=== PATIENT | male | born 1965 | race African-American/Black ===

== ENCOUNTER 2017-07-06 03:18 | Inpatient (IN) | payer OTHER ==
[~2017-07-06] VITALS: Ht 182.9 cm; Wt 131.5 kg
[2017-07-06] VITALS (9 sets, daily range): BP systolic 116–148; BP diastolic 70–97
[~2017-07-06 03:18] MED LIST: ANTI DEPRESSANT; ATORVASTATIN CA20 MG PO; DILANTIN100 MG PO; FLEXERIL PO; IBUPROFEN 400400 M1 PO; IBUPROFEN 800800 MG PO; MEDROLDOSEPACK PO; NORCO 5-325 TA1 EACH PO; PENICILLIN VK250 MG PO; PERCOCET 10-321 EAC1 PO; PERCOCET 5-3251 EACH PO; PREDNISONE 10 M10 M1 PO; PROTONIX40 M2 PO; TESSALON200 MG PO; ULTRAM 50MG TAB50 MG PO; VICODIN 5-5001 EACH; ZPAK PO
[2017-07-06 03:33] LABS: ABSOLUTE NEUTROPHILS 4.4 thou/uL (1.4-8.2); BASOPHILS 0.9 % (0.0-2.0); EOSINOPHILS 1.4 % (0.0-3.0); HEMATOCRIT 46.1 % (42.0-52.0); HEMOGLOBIN 16.3 gm/dL (14.0-18.0); LYMPHOCYTES 34.3 % (24.0-44.0); MCH 30.1 pg (26.0-34.0); MCHC 35.3 g/dL (28.0-37.0); MCV 85.2 fL (80.0-100.0); MONOCYTES 10.2 % (1.0-8.0); PLATELET COUNT 235 thou/uL (150-400); POLYS 53.2 % (36.0-66.0); RBC 5.41 mil/uL (4.50-6.00); RDW 13.9 % (10.5-14.5); WBC 8.3 thou/uL (4.0-11.0)
[2017-07-06 03:41] LABS: CALCIUM 8.9 mg/dL (8.5-10.1); CREATININE 1.3 mg/dL (0.7-1.3); POTASSIUM 4.1 mmol/L (3.5-5.1)
[2017-07-06 03:47] LABS: ALBUMIN 3.7 g/dL (3.4-5.0); TOTAL BILIRUBIN 0.3 mg/dL (<0.1-1.0); TOTAL PROTEIN 7.1 g/dL (6.4-8.2)
[2017-07-07] VITALS (9 sets, daily range): BP systolic 101–134; BP diastolic 56–72
[2017-07-07 06:10] LABS: CREATININE 1.3 mg/dL (0.7-1.3); POTASSIUM 4.3 mmol/L (3.5-5.1)
[2017-07-07] MEDS ORDERED: PREDNISONE 10 M10 MG PO (11:28)
[2017-07-07] MEDS ORDERED: PROTONIX40 M1 PO (11:29)
== END 2017-07-07 16:21 | disposition home or self-care (01) | DRG 916 ==
LOC: ER 03:18 → EROBS 04:23 → 3W 07:29
PROVIDERS: Emergency Medicine; Nurse Practitioner Family
DX: T78.3XXA Angioneurotic edema, initial encounter (principal); I10 Essential (primary) hypertension; E78.00 Pure hypercholesterolemia, unspecified; K21.9 Gastro-esophageal reflux disease without esophagitis; F17.210 Nicotine dependence, cigarettes, uncomplicated; Z83.3 Family history of diabetes mellitus
CPT/HCPCS: 10879

== ENCOUNTER 2017-07-09 04:43 | Emergency (ER) | payer OTHER ==
[~2017-07-09] VITALS: Ht 182.9 cm; Wt 131.5 kg
[~2017-07-09 04:43] MED LIST changes: +PREDNISONE 10 M10 MG PO; +PROTONIX40 M1 PO
[2017-07-09 05:27] LABS: HEMATOCRIT 47.5 % (42.0-52.0); HEMOGLOBIN 16.5 gm/dL (14.0-18.0); MCHC 34.7 g/dL (28.0-37.0); MCV 86.6 fL (80.0-100.0); PLATELET COUNT 249 thou/uL (150-400); RBC 5.49 mil/uL (4.50-6.00); RDW 14.2 % (10.5-14.5)
[2017-07-09 05:32] LABS: CALCIUM 8.7 mg/dL (8.5-10.1); CREATININE 1.3 mg/dL (0.7-1.3)
[2017-07-09 05:34] LABS: POTASSIUM 4.5 mmol/L (3.5-5.1)
[2017-07-09 07:08] LABS: ABSOLUTE NEUTROPHILS 6.2 thou/uL (1.4-8.2)
[2017-07-09] MEDS ORDERED: HYDROCODONE-ACE15 ML PO (07:52)
[2017-07-09] MEDS ORDERED: AUGMENTIN 875-1 EACH PO (07:52)
[2017-07-09] MEDS ORDERED: IBUPROFEN 600600 M1 PO (07:52)
[2017-07-09] MEDS ORDERED: SENNA-DOCUSATE1 EACH PO (07:52)
[2017-07-09 08:39] VITALS: BP 117/77
== END 2017-07-09 08:40 | disposition home or self-care (01) ==
LOC: ER 04:43
PROVIDERS: Emergency Medicine
DX: J36 Peritonsillar abscess (principal)

== ENCOUNTER → 2018-12-30 | Outpatient (CLI) | payer BC ==
[~2018-12-30] MED LIST changes: +AUGMENTIN 875-1 EACH PO; +HYDROCODONE-ACE15 ML PO; +IBUPROFEN 600600 M1 PO; +SENNA-DOCUSATE1 EACH PO
== END ==
LOC: MRI 09:39
DX: M47.26 Other spondylosis with radiculopathy, lumbar region (principal); M48.04 Spinal stenosis, thoracic region; M54.40 Lumbago with sciatica, unspecified side; R56.9 Unspecified convulsions

== ENCOUNTER → 2019-02-10 | Outpatient (CLI) | payer BC | LOC: MRI 08:59 | DX: S06.9X0D Unspecified intracranial injury without loss of consciousness, subsequent encounter (principal); M47.812 Spondylosis without myelopathy or radiculopathy, cervical region; M50.31 Other cervical disc degeneration, high cervical region; T88.9XXA Complication of surgical and medical care, unspecified, initial encounter; G95.0 Syringomyelia and syringobulbia; W19.XXXA Unspecified fall, initial encounter ==

== ENCOUNTER → 2019-04-07 | Outpatient (CLI) | payer BC ==
[~2019-04-07] VITALS: Ht 182.9 cm; Wt 145.2 kg
[~2019-04-07] MED LIST changes: +GRALISE600 MG PO; +NABUMETONE 500500 M1 PO; +REQUIP 0.25 M0.25 MG PO
--- NOTE | ~2019-04-07 | HPC ---
[facility] [place] [address] PAIN MANAGEMENT CONSULTATION Name: KIMBERYL LERNER [id number] Admission: 04/07/19 Attend Phys: Armando Mayfield DO Discharge: Date of : 69 Report #: [id number] THIS REPORT FOR: cc: Nathan Israel MD, Michael D. MD Johnson, James E. DO ~ CC: Armando Israel MD DATE OF SERVICE: 04/07/2019 REFERRING PHYSICIAN: Nathna Israel MD CHIEF COMPLAINT: Axial back pain. HISTORY OF PRESENT ILLNESS: As you know, the patient is a very pleasant 53-year-old male who reports longstanding history of axial back pain. The patient indicates pain began somewhere in 2018. He denies injury or trauma that may have led to his symptom development. He reports that in the past, he has undergone epidural injections under fluoroscopic guidance with [facility] at their [facility] with good efficacy. He was advised at that time, he was suffering from mild arthritic changes of the lumbar region. He apparently had been doing well since that time. He is being evaluated by his neurologist, Dr. Israel here at [facility] in their Neurology Department, where the patient was complaining of chronic back issues. The patient was subsequently referred to our clinic after discussion of potential treatment options that could be available. The patient indicates today his pain is continuous and constant. He describes his pain as aching. He places his current pain score 7/10, daily average at 8/10, worst pain has been is 10/10. The patient states his pain is exacerbated with standing for any length of time or sitting for any length of time. He indicates nothing much has made his pain better other than the epidural injections he had in the past. He has been referred to our service by his neurologist, Dr. Israel for evaluation for suspected axial back pain. PAST MEDICAL HISTORY: 1. Seizures. 2. Restless leg syndrome. 3. Morbid obesity. PAST SURGICAL HISTORY: No reported history of surgery. SOCIAL HISTORY: The patient is a smoker, smoking 1 pack tobacco per day and he [facility] [address] [place] [address] PAIN MANAGEMENT CONSULTATION Name: KIMBERLY LERNER Room #: [facility]#: [id number] Admission: 04/07/19 Attend Phys: Armando Mayfield DO Discharge: Date of : 69 Report #: [id number] has done so for 20 years plus. He denies IV or illicit drug use. Denies any chronic alcohol use. 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 He is receiving disability income due to his seizures. He is on disability benefits. He is not in litigation in regards to pain. He is unaccompanied at today's visit. REVIEW OF SYSTEMS: Positive for fatigue, weakness, headaches, changes in bowel movements with constipation, abdominal pain, peptic ulcer disease, nocturia, incontinence and dribbling to urine, lightheadedness and dizziness, seizures, numbness and tingling sensations, chronic axial back pain. All other review of systems negative per 12-point review of systems other than those listed in history of present illness. Pain impact score 39/70, indicating moderate interference of daily activities secondary to pain. IMAGING: MRI of the thoracic spine is negative for any pathology. All findings are normal. MRI lumbar spine obtained 12/30/2018 shows mild facet arthropathy at the L1-L2, L2-L3, L4-L5 and L5-S1 levels. There is no significant central canal or neural foraminal stenosis at any level. There was noted ligamentum flavum hypertrophy at the L2-L3, L3-L4 and L4-L5 levels. PHYSICAL EXAMINATION: VITAL SIGNS: Blood pressure 137/94, pulse 90, respiratory rate 16 and unlabored. The patient is 97% on room air, height 6 feet tall, weight 320 pounds, BMI calculated 43.4. GENERAL: Well-developed, well-nourished, well-hydrated, class 3, morbidly obese 53-year-old male, appears stated age, pain is rated today at 7/10. HEENT: Normocephalic, atraumatic. Pupils equal, round, reactive to light. Extraocular muscles are intact. Sclerae nonicteric without injection. NEUROLOGIC: Cranial nerves 2-12 grossly intact. Speech is fluent. The patient deemed a good historian. LUNGS: Clear. No wheeze, rhonchi or rales. CARDIOVASCULAR: Regular. No appreciable gallop or rub. ABDOMEN: Soft, obese, normoactive bowel sounds. EXTREMITIES: Show no clubbing, no cyanosis, and no edema. MUSCULOSKELETAL: Lower extremity strength appears equal and symmetrical 5/5, intact to light touch from L1 through S2 dermatomes. Seated straight leg raising negative. Supine straight leg raising negative. Dick's test is negative. Modified Gaenslen's positive for some axial low back pain. There is paraspinal muscle tenderness throughout the lower thoracic and entire lumbar area. No spinous process tenderness. Gait is normal with casual gait. The patient does have difficulty with tandem gait and heel walking today. His tenderness, reflexes at patella and Achilles are noted to be absent at the [address] [place] [address] PAIN MANAGEMENT CONSULTATION Name: KIMBERLY LERNER Room #: REG [facility]#: [id number] Admission: 04/07/19 Attend Phys: Armando Mayfield DO Discharge: Date of : 69 Report #: [id number] ankles bilaterally, though the patella appears to be symmetrical at 1/4. Lumbar provocation testing is met with increasing pain, specifically with rotation and lateral flexion. Forward flexion of lumbar spine tends to improve pain slightly. Extension exacerbates symptoms. There is moderate restriction of motion of this activity. Modified Gaenslen's positive for axial low back pain. ASSESSMENT: 1. Lumbosacral spondylosis without radiculopathy. 2. Mild facet arthropathy of the lumbar spine. 3. Report of lumbar radiculopathy. 4. Morbid obesity. 5. Chronic intractable pain. PLAN: 1. Based on today's physical exam and history the patient has provided, the description the patient uses in regards to pain as well as location of symptoms, the likely source of the patient's pain is the facet joints of the lower lumbar region. There is a component of radiculopathy based on the patient's report with bilateral lower extremity numbness and tingling that was present prior. We have reviewed with the patient the MRI that was obtained in December 2018, which showed mild arthritic changes at L1-L2 through L5-S1. I am pleased to advise the patient that there is no neural foraminal stenosis or central canal stenosis. There is some ligamentum flavum hypertrophy, which is typical for mild facet degenerative changes. After long discussion of the findings of the MRI, we discussed how his symptoms would be improved with treatment course. We discussed the following treatment options. 1. We discussed physical therapy, stretching exercise, core strengthening and a concerted effort at weight loss. This is the gold standard treatment for the patient's current back pain. We discussed medication management utilizing nonsteroidal anti-inflammatory for baseline pain control. We discussed adjustments in his sleep pattern and positioning to improve axial back pain by offloading the weight of the lumbar region during lying in bed. This will significantly improve the patient's overall pain. We discussed interventional treatments including the requested lumbar epidural injection, for which the patient has good benefit in the past. We also discussed intra-articular facet injections, medial branch nerve blocks and radiofrequency lesioning. Given the lack of significant findings on the MRI, surgical options are not recommended. After reviewing the risks and benefits of all proposed treatment options, the patient chose to begin with medication management, but also requesting the possibility of undergoing a lumbar epidural injection, seeing good benefit with this in the past. 2. The patient will be started on nabumetone 500 mg dose 1 tab p.o. t.i.d. I have given the patient #90 tablets. I have advised the patient to watch for dyspepsia, worsening of blood pressure, lower extremity edema with its use. If he notes any side effects, discontinue immediately, call for further [address] [address] PAIN MANAGEMENT CONSULTATION Name: KIMBERLY LERNER Room #: REG [facility]#: [id number] Admission: 04/07/19 Attend Phys: Armando Mayfield DO Discharge: Date of : 69 Report #: [id number] instructions. Prescription was sent via e-scribe to local pharmacy. 3. We have adjusted the patient's position while sleeping. This should significantly improve the patient's pain during the evening hours, but also make it much easier to arise in the morning. We have shown him positioning, he can do on his own at home to adjust current position. He can also look into a leg contour pillow as another option to offload the weight of the lumbar spine when in a lateral decubitus position. 4. We will begin the process of authorization for the patient to undergo a lumbar epidural injection. He does have a history by his report and his neurologist report of lumbar radicular symptoms. I am pleased to indicate to the patient the findings of his MRI would indicate that this is transient in nature, though he is interested in undergoing an epidural injection to address this back pain that continues. We will begin the authorization process immediately. Once this authorization has been obtained, we can have the patient return to undergo epidural injection. I am hopeful the medications provided above will actually resolved the patient's symptoms and we can use this as our treatment course instead of becoming more aggressive with the higher risk injections. 5. We wish to thank Dr. Israel for the referral of the patient to our clinic. We will keep you apprised of his response to treatment as we address his axial back pain and upper buttock symptoms. Again, we wish to thank you for the opportunity to see this patient in consultation. By: [id number] 16 Armando Mayfield DO /fabby
[2019-04-07 09:20] VITALS: BP 137/94
--- NOTE | 2019-04-07 09:56 | NUR ---
Pain Clinic Assessment: 1. History of Osteoarthritis: NONE History of Rheumatoid Arthritis: NONE 2. Height: 6 ft. 0 in. 182.9 cm. Weight: 320.0 lb. oz. 145.152 kg. Patient's BMI: 43.4 3. Vital Signs: BP: 137/94 Pulse: 90 Resp: 16 Temp: 02 Sat: 97 ECG Mon: 4. Pain Intensity: 7 5. Fall Risk: Dizziness: N Needs help standing or walking: N Fallen in the last 3 months: Y Fall risk comments: 6. Patient on Blood Thinner: None 7. History of Hypertension: N 8. Opioid Therapy greater than 6 weeks: N Opiate Contract Signed: 9. Risk Assessment Tool Provided: 10. Functional Assessment Tool: 11. Recreational Drug Use: Never Drug Type: Tobacco Use: Current Every Day Smoker Tobacco Type: Cigarettes Amount or Packs/day: 1/2 How Many Years: 20 Alcohol Use: No Frequency: Quant:
== END ==
LOC: PAIN 06:43
DX: M47.26 Other spondylosis with radiculopathy, lumbar region (principal); M47.818 Spondylosis without myelopathy or radiculopathy, sacral and sacrococcygeal region; M12.88 Other specific arthropathies, not elsewhere classified, other specified site; E66.01 Morbid (severe) obesity due to excess calories; G89.29 Other chronic pain

== ENCOUNTER → 2019-04-14 | Outpatient (CLI) | payer BC ==
[~2019-04-14] VITALS: Ht 182.9 cm; Wt 150.6 kg
[2019-04-14 08:49] VITALS: BP 126/80
--- NOTE | 2019-04-14 09:05 | NUR ---
Pain Clinic Assessment: 1. History of Osteoarthritis: NONE History of Rheumatoid Arthritis: NONE 2. Height: 6 ft. 0 in. 182.9 cm. Weight: 332.0 lb. oz. 150.595 kg. Patient's BMI: 45.0 3. Vital Signs: BP: 126/80 Pulse: 86 Resp: 16 Temp: 02 Sat: 96 ECG Mon: 4. Pain Intensity: 7 5. Fall Risk: Dizziness: N Needs help standing or walking: N Fallen in the last 3 months: N Fall risk comments: 6. Patient on Blood Thinner: None 7. History of Hypertension: N 8. Opioid Therapy greater than 6 weeks: N Opiate Contract Signed: 9. Risk Assessment Tool Provided: 10. Functional Assessment Tool: 11. Recreational Drug Use: Never Drug Type: Tobacco Use: Current Every Day Smoker Tobacco Type: Cigarettes Amount or Packs/day: 1/2 How Many Years: 25 Alcohol Use: No Frequency: Quant:
--- NOTE | 2019-04-15 11:52 | HPC ---
[facility] [place] [address] PAIN MANAGEMENT CONSULTATION Name: KIMBERLY LERNER Room #: REG [facility].#: [id number] Admission: 04/14/19 Attend Phys: Armando Mayfield DO Discharge: Date of : 69 Report #: [id number] THIS REPORT FOR: cc: Nathan Israel MD, Michael D. MD Johnson, James E. DO ~ DATE OF SERVICE: 04/14/2019 CHIEF COMPLAINT: Axial back pain. HISTORY OF PRESENT ILLNESS: As you know, the patient is a very pleasant 53-year-old male with longstanding history of axial back pain. States pain began in 2018. He denies injury or trauma. He was seen in consultation per the request of Dr. Israel on 04/07/2019 diagnosed with lumbosacral spondylosis and mild facet arthropathy of the lumbar spine along with reported lumbar radiculopathy. He was given medication management to start nabumetone 500 mg dose, which he did not initiate as the cost of medication was too prohibitive. He returned today in followup visit for lumbar epidural injection under fluoroscopic guidance reporting pain score 7/10. He indicates no new injury or trauma that may have led to symptom continuation. ALLERGIES: NO REPORTED DRUG ALLERGIES. CURRENT MEDICATIONS: Gabapentin 600 mg t.i.d., ropinirole 0.25 mg once a day. SOCIAL HISTORY: The patient is a smoker, smoking 1 pack tobacco per day. He has done so for 20+ years. Denies IV or illicit drug use. Denies any chronic alcohol use. 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 He is accompanied by his present in room today. IMAGING: No new imaging available. PHYSICAL EXAMINATION: VITAL SIGNS: Blood pressure 126/80, pulse 86, respiratory rate 16 and unlabored. The patient is 96% on room air, height 6 feet tall, weight 332 pounds, BMI calculated 45. GENERAL: Well-developed, well-nourished, well-hydrated, class 3, morbidly obese 53-year-old male, appearing stated age, pain is rated around 7/10. HEENT: Normocephalic, atraumatic. Pupils equal, round, reactive to light. EXTREMITIES: Show no clubbing, no cyanosis, and no edema. MUSCULOSKELETAL: Lower extremity strength remains symmetrical 5/5. Intact to light touch from L1 through S2 dermatomes. Seated straight leg raising negative. Supine straight leg raising negative. Modified Gaenslen's positive [address] [address] PAIN MANAGEMENT CONSULTATION Name: KIMBERLY LERNER Room #: REG [facility]#: [id number] Admission: 04/14/19 Attend Phys: Armando Mayfield DO Discharge: Date of : 69 Report #: [id number] for some axial low back pain. ASSESSMENT: 1. Suspected lumbar radiculopathy. 2. Lumbosacral spondylosis with radicular symptoms. 3. Facet arthropathy of the lumbar spine. 4. Chronic intractable pain. PLAN: 1. The patient returns today in followup visit indicating he did not initiate the nabumetone therapy as the medication was too cost prohibitive. Apparently, his insurance was only covering certain amount of the medication and left about $60 worth of medication cost per month. The patient states that he would not be able to afford this on a long-term basis and thus did not start the medication. When the patient to returned today, we reviewed the patient's coverage and this in conjunction with [employer] we were able to get the medication down to no more than about 24 bucks. The patient states he is going to try this medication initially. He wishes to start the medication. Again, I have provided a refill prescription in written form, so he can shop the medication with his [employer] to find the lowest cost. He was given a prescription of nabumetone 500 mg dose 1 tab p.o. t.i.d. and I have given the patient 2 refills, essentially 3 months' worth of medication. 2. We will establish the patient an appointment next week to undergo a lumbar epidural injection. He wishes to give the medication a week trial before moving forward with injection therapy. We will schedule the patient an appointment next Saturday at the earliest possible time to undergo a lumbar epidural injection under fluoroscopic guidance in hopes of improving pain. We are hopeful the patient will be able to cancel this appointment as he finds the medications beneficial. We will see him back in followup visit if medications are ineffective for this first in the series of requested epidurals. 3. We will keep you apprised of response to medication and any injections deemed necessary. Again, we wish to thank you for the opportunity to see the patient in consultation. <ELECTRONICALLY SIGNED> By: Armando Mayfield DO 04/15/19 [id number] Armando Mayfield DO /nt
== END ==
LOC: PAIN 08:25
DX: M47.817 Spondylosis without myelopathy or radiculopathy, lumbosacral region (principal); G89.29 Other chronic pain; M47.896 Other spondylosis, lumbar region; Z79.891 Long term (current) use of opiate analgesic